=== PATIENT | male | born 1980 | race African-American/Black ===

== ENCOUNTER 2017-03-17 18:52 | Emergency (ER) | payer MEDICARE, MEDICAID ==
[2017-03-17 20:13] VITALS: BP 126/82
[2017-03-17] MEDS ORDERED: NAPROXEN 375 MG TABLET PO ONE (20:41)
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
[2017-03-17] MEDS ORDERED: NAPROXEN 375 MG TABLET ONE (21:15)
== END 2017-03-17 21:21 | disposition home or self-care (01) ==
LOC: ER 18:52
DX: G89.29 Other chronic pain (principal); M79.601 Pain in right arm; K21.9 Gastro-esophageal reflux disease without esophagitis
CPT/HCPCS: 99283; A9270; J3490